=== PATIENT | female | born 1955 | race Caucasian/White ===

== ENCOUNTER 2023-03-16 05:00 | Inpatient (IN) | payer OTHER ==
[~2023-03-16] VITALS: Ht 149.9 cm; Wt 58.5 kg
[2023-03-16] MEDS ORDERED: CELECOXIB 100 MG CAPSULE ONE (05:41)
[2023-03-16] MEDS ORDERED: GABAPENTIN 300 MG CAPSULE ONE (05:42)
[2023-03-16] MEDS ORDERED: CEFAZOLIN SOD 2 GM in D5W 50 ML IV ONE (06:00)
[2023-03-16] MEDS ORDERED: GABAPENTIN 300 MG CAPSULE PO ONE (06:00)
[2023-03-16] MEDS ORDERED: CELECOXIB 100 MG CAPSULE PO ONE (06:30)
[2023-03-16] MEDS ORDERED: ONDANSETRON HCL 4 MG/2 ML VIAL ONE (07:41)
[2023-03-16] MEDS ORDERED: VANCOMYCIN HCL 1000 MG/VIAL IV ONE (07:41)
[2023-03-16] MEDS ORDERED: WATER FOR IRRIGATION,STERILE 1,000 ML IRRIG.SOLN IR ONE (07:41)
[2023-03-16] MEDS ORDERED: LR 1,000 ML IV.SOLN IV ONE (07:41)
[2023-03-16] MEDS ORDERED: BUPIVACAINE /PF 0.25% 30 ML VIAL INJ ONE (07:41)
[2023-03-16] MEDS ORDERED: PROPOFOL 200MG/ 20ML VIAL (DIPRIVAN) IV ONE (07:41)
[2023-03-16] MEDS ORDERED: KETOROLAC TROMETHAMINE 30 MG VIAL ONE (07:41)
[2023-03-16] MEDS ORDERED: NS 1000 ML IV.SOLN IV ONE (07:41)
[2023-03-16] MEDS ORDERED: TRANEXAMIC ACID 1,000 MG/10 ML VIAL ONE (07:41)
[2023-03-16] MEDS ORDERED: ROPIVACAINE HCL/PF 0.2% EPIDURAL 100 ML PLAST..BAG ONE (07:41)
[2023-03-16] MEDS ORDERED: NS IRRIG SOLN 1000 ML IR ONE (07:41)
[2023-03-16] MEDS ORDERED: BUPIVACAINE /PF 0.5% 30 ML VIAL ONE (07:41)
[2023-03-16] MEDS ORDERED: BISACODYL 10 MG/SUPPOSITORY RC PRN (10:00)
[2023-03-16] MEDS ORDERED: LACTULOSE 20 GM/30 ML UDC PO PRN (10:00)
[2023-03-16] MEDS ORDERED: METOCLOPRAMIDE HCL 10 MG/2 ML VIAL IVP PRN (10:00)
[2023-03-16] MEDS ORDERED: NALOXONE HCL 2 MG/2 ML SYR IVP PRN (10:00)
[2023-03-16] MEDS ORDERED: DIPHENHYDRAMINE HCL 25 MG CAPSULE PO PRN (10:00)
[2023-03-16] MEDS ORDERED: NALOXONE HCL 2 MG/2 ML SYR (NARCAN) IVP PRN (10:00)
[2023-03-16] MEDS ORDERED: NALOXONE HCL 0.4 MG/ML AMP (NARCAN) IVP PRN (10:00)
[2023-03-16] MEDS ORDERED: HYDROmorphone 1 MG/ML INJ. CARTRIDGE IVP PRN ×3 (11:00)
[2023-03-16] MEDS ORDERED: LORATADINE 10 MG TABLET PO PRN (11:00)
[2023-03-16 11:45] VITALS: BP_SYST 97; PULSE 63; RESP 16; TEMP 97.8; O2SAT 100
[2023-03-16] MEDS ORDERED: ONDANSETRON HCL 4 MG/2 ML VIAL IVP PRN (11:45)
[2023-03-16 12:22] VITALS: BP_SYST 97; PULSE 62; RESP 16; TEMP 97.8; O2SAT 99
[2023-03-16] MEDS ORDERED: PITA4TAB2 PO (12:36)
[2023-03-16] MEDS ORDERED: VITD400 PO (12:36)
[2023-03-16] MEDS ORDERED: CALC200T47 PO (12:36)
[2023-03-16] MEDS: oxyCODONE HCL 5 MG TABLET PO PRN ×3 (13:27→22:30)
[2023-03-16] MEDS: ACETAMINOPHEN 500 MG TABLET PO SCH ×2 (14:37→21:26)
[2023-03-16] MEDS: KETOROLAC TROMETHAMINE 10 MG TABLET (TORADOL) PO SCH ×2 (14:37→21:26)
[2023-03-16] MEDS: ceFAZolin SODIUM 2 GM in D5W 50 ML IV SCH ×2 (14:39→21:25)
[2023-03-16 15:16] VITALS: BP_SYST 131; PULSE 71; RESP 16; TEMP 97.1; O2SAT 97
[2023-03-16 20:05] VITALS: BP_SYST 103; PULSE 75; RESP 20; TEMP 97.7; O2SAT 92
[2023-03-16] MEDS: SENNOSIDES/DOCUSATE SODIUM 1 TAB TABLET(SENOKOT-S) PO SCH (21:25)
[2023-03-17 01:38] VITALS: BP_SYST 116; PULSE 71; RESP 18; TEMP 97.6; O2SAT 95
[2023-03-17] MEDS: oxyCODONE HCL 5 MG TABLET PO PRN ×4 (03:25→19:38)
[2023-03-17] MEDS: ceFAZolin SODIUM 2 GM in D5W 50 ML IV SCH (04:51)
[2023-03-17] MEDS: ACETAMINOPHEN 500 MG TABLET PO SCH ×3 (06:52→22:05)
[2023-03-17] MEDS: KETOROLAC TROMETHAMINE 10 MG TABLET (TORADOL) PO SCH (06:53)
[2023-03-17 07:24] LABS: CALCIUM 8.6 mg/dL (8.4-11.0); CREATININE 0.88 mg/dL (0.55-1.30)
[2023-03-17 08:00] VITALS: BP_SYST 110; PULSE 74; RESP 20; TEMP 97.2; O2SAT 96
[2023-03-17] MEDS: ASPIRIN 81 MG TAB.CHEW PO SCH ×2 (09:19→22:05)
[2023-03-17] MEDS: SENNOSIDES/DOCUSATE SODIUM 1 TAB TABLET(SENOKOT-S) PO SCH ×2 (09:19→22:05)
[2023-03-17 11:13] VITALS: O2SAT 97
[2023-03-17 11:40] VITALS: BP_SYST 133; PULSE 72; RESP 16; TEMP 96.7; O2SAT 100
[2023-03-17] MEDS: CELECOXIB 200 MG CAPSULE PO SCH ×2 (12:00→22:05)
[2023-03-17 15:31] VITALS: BP_SYST 129; PULSE 75; RESP 15; TEMP 97; O2SAT 94
[2023-03-17] MEDS: traMADol HCL HCL 50 MG TABLET (ULTRAM) PO PRN (17:24)
[2023-03-17 20:00] VITALS: BP_SYST 145; PULSE 74; RESP 16; TEMP 98; O2SAT 96
[2023-03-18] VITALS: BP_SYST 135; PULSE 90; RESP 18; TEMP 98.2; O2SAT 16; O2SAT 98
[2023-03-18] MEDS: oxyCODONE HCL 5 MG TABLET PO PRN ×3 (02:33→09:49)
[2023-03-18] MEDS: ACETAMINOPHEN 500 MG TABLET PO SCH ×2 (06:50→14:22)
[2023-03-18 08:00] VITALS: BP_SYST 106; PULSE 76; RESP 18; TEMP 98; O2SAT 96
[2023-03-18] MEDS: SENNOSIDES/DOCUSATE SODIUM 1 TAB TABLET(SENOKOT-S) PO SCH (09:15)
[2023-03-18] MEDS: ASPIRIN 81 MG TAB.CHEW PO SCH (09:15)
[2023-03-18 11:19] VITALS: BP_SYST 145; PULSE 89; RESP 16; TEMP 98; O2SAT 100
[2023-03-18] MEDS: CELECOXIB 200 MG CAPSULE PO SCH (12:36)
[2023-03-18 13:13] VITALS: BP_SYST 145; PULSE 89; RESP 18; TEMP 98; O2SAT 100
[2023-03-18 15:17] VITALS: BP_SYST 103; PULSE 98; RESP 16; TEMP 98.3; O2SAT 97
[2023-03-18] MEDS: traMADol HCL HCL 50 MG TABLET (ULTRAM) PO PRN (16:20)
== END 2023-03-18 16:30 | disposition home or self-care (01) | DRG 470 ==
LOC: SMU 05:00
PROVIDERS: ADMIT Orthopaedic Surgery Sports Medicine; ATTEND Orthopaedic Surgery Sports Medicine
PROC: 0SRD0J9 Replacement of Left Knee Joint with Synthetic Substitute, Cemented, Open Approach (ICD-10-PCS; principal; 2023-03-16 07:41)
DX: M17.12 Unilateral primary osteoarthritis, left knee (principal)
CPT/HCPCS: 36415; 73564; 80048; 87081; 88304; 88311; 96379; 97110-GP; 97116-GP; 97163-GP; 97530-GP; C1713; C1776; J0690; J1170; J1885; J2405; J2704; J2795; J3370; J3490; J7030; J7060; J7120